=== PATIENT | male | born 1955 | race Caucasian/White ===

== ENCOUNTER 2018-02-24 11:25 | Emergency (ER) | payer BC ==
[2018-02-24] MEDS ORDERED: Bacitracin Oint 1 GM U/D Packet TOP ONE (11:36)
[2018-02-24] MEDS ORDERED: Lidocaine 1% with EPINEPHrine 1:100,000 50 ML MDV INFILT STA (11:36)
--- NOTE | 2018-02-24 12:37 | EDM.PDOC ---
ED HPI GENERAL MEDICAL PROBLEM - General Chief Complaint: Laceration Stated Complaint: CUT LT MIDDLE FINGER Time Seen by Provider: 02/24/18 11:45 Source of Information: Reports: Patient History Limitations: Reports: No Limitations - History of Present Illness INITIAL COMMENTS - FREE TEXT/NARRATIVE: Dawson presents today for complaints of laceration to left middle finger he developed while changing the blade on his mower. Left 3-Middle finger Pain Score (Numeric/FACES): 2 - Related Data Allergies Allergy/AdvReac Type Severity Reaction Status Date / Time No Known Allergies Allergy Verified 02/24/18 11:39 Past Medical History Cardiovascular History: Reports: High Cholesterol Dermatologic History: Reports: Other (See Below) Other Dermatologic History: laceration L middle finger 2 inch cut Social & Family History - Tobacco Use Smoking Status *Q: Never Smoker - Caffeine Use Caffeine Use: Reports: Coffee - Alcohol Use Days Per Week of Alcohol Use: 7 Number of Drinks Per Day: 1 Total Drinks Per Week: 7 - Recreational Drug Use Recreational Drug Use: No ED ROS GENERAL - Review of Systems Review Of Systems: See Below Constitutional: Reports: No Symptoms Respiratory: Reports: No Symptoms Cardiovascular: Reports: No Symptoms Musculoskeletal: Reports: Other (Pain to left middle finger, no other pain or injuries. ) Skin: Reports: Wound, Other (Laceration to left middle finger. ) Psychiatric: Reports: No Symptoms Hematologic/Lymphatic: Reports: No Symptoms Immunologic: Reports: No Symptoms ED EXAM, SKIN/RASH Exam: See Below Text/Narrative:: Dawson presents with complaints of laceration to left middle finger [employer]. Bleeding controlled, ROM intact. Exam Limited By: No Limitations General Appearance: Alert, WD/WN, No Apparent Distress Ears: Normal External Exam, Normal Canal, Hearing Grossly Normal, Normal TMs Nose: Normal Inspection, Normal Mucosa, No Blood Throat/Mouth: Normal Inspection, Normal Lips, Normal Teeth, Normal Gums, Normal Oropharynx, Normal Voice, No Airway Compromise Head: Atraumatic, Normocephalic Neck: Normal Inspection, Supple, Non-Tender, Full Range of Motion. No: Lymphadenopathy (R), Lymphadenopathy (L) Respiratory/Chest: No Respiratory Distress, Lungs Clear, Normal Breath Sounds, No Accessory Muscle Use, Chest Non-Tender Cardiovascular: Normal Peripheral Pulses, Regular Rate, Rhythm, No Edema, No Murmur, No Rub Peripheral Pulses: 2+: Radial (L), Radial (R) Back Exam: Normal Inspection, Full Range of Motion. No: CVA Tenderness (R), CVA Tenderness (L) Extremities: Normal Range of Motion, No Pedal Edema, Normal Capillary Refill, Other (CMS intact to left middle finger, laceration left middle finger, bleeding controlled. ) Neurological: Alert, Oriented, CN II-XII Intact, Normal Cognition, Normal Gait, Normal Reflexes, No Motor/Sensory Deficits Psychiatric: Normal Affect, Normal Mood Skin: Warm, Normal Color, No Rash, Other (Laceration 2.5cm left middle finger. ) Location, Skin: Upper Extremity, Left, Other (left middle finger) Characteristics: Linear Associated features: Swelling. No: Warmth, Tenderness, Inflammation Lymphatic: No Adenopathy ED SKIN PROCEDURES - Laceration/Wound Repair Left Dorsal Digit - 3rd (Middle) Lac/Wound length In cm: 2.5 Appearance: Subcutaneous, Linear Distal NVT: Neuro & Vascular Intact, No Tendon Injury Anesthetic Type: Local Local Anesthesia - Lidocaine (Xylocaine): 1% with EPI Local Anesthetic Volume: 3cc Skin Prep: Chlorhexidine (Hibiciens), Saline Saline Irrigation (cc's): 120 Exploration/Debridement/Repair: Wound Explored, In a Bloodless Field Closed with: Sutures Suture Size: 4-0 # of Sutures: 5 Suture Type: Nylon Sterile Dressing Applied: Nurse Tetanus Status Addressed: Yes Complications: No Course - Vital Signs Last Recorded V/S: Last Vital Signs Temp 35.4 C 02/24/18 11:36 Pulse 83 02/24/18 11:36 Resp 18 02/24/18 11:36 BP 138/85 02/24/18 11:36 Pulse Ox - Orders/Labs/Meds Meds: Medications Discontinued Medications Generic Name Dose Route Start Last Admin Trade Name Pranav PRN Reason Stop Dose Admin Bacitracin 1 dose 02/24/18 11:36 02/24/18 12:13 Bacitracin Oint 1 Gm TOP 02/24/18 11:37 1 dose ONETIME ONE Administration Lidocaine/Epinephrine 10 ml 02/24/18 11:36 02/24/18 12:00 Xylocaine 1% With Epinephrine 1:100,000 INFILT 02/24/18 11:37 10 ml NOW STA Administration Departure - Departure Time of Disposition: 12:35 Disposition: Home, Self-Care 01 Condition: Good Clinical Impression: Laceration of left middle finger - Discharge Information *PRESCRIPTION DRUG MONITORING PROGRAM REVIEWED*: Not Applicable *COPY OF PRESCRIPTION DRUG MONITORING REPORT IN PATIENT MAXINE: Not Applicable Instructions: Laceration Care, Adult Referrals: PCP,None [Primary Care Provider] - Forms: ED Department Discharge Additional Instructions: You have been evaluated and treated for a laceration of the left middle finger. The wound was closed with sutures, they can come out in 7 to 10 days. Keep the wound clean and dry, avoid soaking your finger. Use bacitracin ointment twice per day to the wound. Return for worsening, issues or concerns. - Assessment/Plan Assessment:: Laceration left middle finger dorsal laceration Plan: Patient evaluated and treated for a laceration of the left middle finger. The wound was closed with sutures, they can come out in 7 to 10 days. Keep the wound clean and dry, avoid soaking finger. Use bacitracin ointment twice per day to the wound. Return for worsening, issues or concerns.
== END 2018-02-24 12:51 | disposition home or self-care (01) ==
LOC: JP.ED 11:25
DX: S61.213A Laceration without foreign body of left middle finger without damage to nail, initial encounter (principal); W26.8XXA Contact with other sharp object(s), not elsewhere classified, initial encounter
CPT/HCPCS: 12001; 99283-25